=== PATIENT | female | born 2000 | race Caucasian/White ===

== ENCOUNTER 2025-06-03 14:34 | Emergency (ER) | payer OTHER, SELFPAY ==
[2025-06-03 14:39] VITALS: BP 147/80; PULSE 125; RESP 19; TEMP 37.2; O2SAT 99; BMI 26.6
[2025-06-03] MEDS: KETOROLAC 30 MG/ML VIAL 15 MG IV (14:52)
[2025-06-03] MEDS: ONDANSETRON 4 MG/2 ML INJ IV (14:52)
[2025-06-03 15:09] LABS: Appearance Urine UA Cloudy; Color Urine UA Orange
[2025-06-03 15:12] LABS: Add Manual Diff / Slide Review NO; Hematocrit 39.7 % (36-46); Hemoglobin 13.2 g/dL (12.0-16.0); Lymphocytes Absolute Auto 1000 /uL (1100-4500); Mean Corpuscular HGB Conc 33.2 % (30-36); Mean Corpuscular Hemoglobin 28.1 PG (26-34); Mean Corpuscular Volume 84.5 fL (80-100); Platelet Count 255 X10^3/uL (150-400)
[2025-06-03 15:20] LABS: Alanine Aminotransferase 14 IU/L (<35); Albumin 5.2 g/dL (3.5-5.0); Albumin Globulin Ratio 1.5 (1.0-2.8); Alkaline Phosphatase 64 U/L (38-126); Blood Urea Nitrogen 11 mg/dL (7-17); Calcium 9.8 mg/dL (8.4-10.2); Carbon Dioxide 21 mmol/L (22-32); Chloride 105 mmol/L (98-107); Estimated Glomerular Filt Rate > 60 mL/min (>60); Globulin 3.5 g/dL (1.7-4.1); Glucose 91 mg/dL (70-99); HEMOLYSIS < 15 (0-50); Lactate (Lactic Acid) 0.9 mmol/L (0.7-2.1); Potassium 3.8 mmol/L (3.4-5.1); Sodium 138 mmol/L (137-145); Total Protein 8.7 g/dL (6.3-8.2)
[2025-06-03 15:24] LABS: Culture Indicated Urine Specimen Cultured
--- NOTE | 2025-06-03 15:26 | ED_ITS ---
HPI - Female Genitourinary
--- NOTE | 2025-06-03 15:26 | ED.FEMALEGU ---
HPI - Female Genitourinary <Jesusita Cano PA-C - Last Filed: 06/03/25 18:54> General Chief complaint: Urogenital-Female Stated complaint: peeing blood, per pt poss bad UTI Time Seen by Provider: 06/03/25 14:45 Source: patient Mode of arrival: Ambulatory History of Present Illness HPI Narrative: Ms. Kolb is a very pleasant 25-year-old female with a past medical history of interstitial cystitis, she does follow up with a private urologist on , she presents to the emergency department today for hematuria and dysuria x5 days with concern of UTI. Patient reports that she has been dealing with a lot of urinary issues in the past however on Friday she started having burning and slight blood in her urine. Today the burning has become constant at the urethra and she is also now having some left-sided low back pain. She is passing large blood clots in her urine as well. She did start taking AZO. 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 She denies chest pain, shortness of breath, abdominal pain, vomiting, diarrhea, constipation but she is experiencing some nausea because of the pain. She is currently in a monogamous relationship with her boyfriend of 5 years, she is not concerned for STDs but is agreeable to be tested for such. Reports that she does have white coat hypertension. Related Data Previous Rx's ?Medication ?Instructions ?Recorded cefpodoxime 200 mg tablet 200 mg PO BID 10 days #20 tabs 06/03/25 fluconazole 150 mg tablet 150 mg PO DAILY 1 dose #1 tab 06/03/25 ketorolac 10 mg tablet 10 mg PO Q8H #14 tabs 06/03/25 ondansetron 4 mg disintegrating 4 mg PO Q8H PRN nausea and 06/03/25 tablet vomiting #14 tabs Allergies Allergy/AdvReac Type Severity Reaction Status Date / Time No Known Drug Allergies Allergy Verified 06/03/25 14:51 Review of Systems <ARIES Elder Last Filed: 06/03/25 18:54> Review of Systems ROS Unobtainable: All systems reviewed & are unremarkable except as noted in HPI and below Exam <Jesusita Cano PA-C - Last Filed: 06/03/25 18:54> Narrative Exam Narrative: GENERAL: 25 year old patient appears stated age. Well-developed patient, in no acute distress. HEAD: Atraumatic. Normocephalic. EYES: No scleral icterus. No injection or drainage. NECK: Trachea midline. Cervical ROM intact. CARDIOVASCULAR: Regular rate and rhythm. RESPIRATORY: ?Nonlabored respirations. ?Speaking in clear, full sentences. ?Clear to auscultation. Breath sounds equal bilaterally. No wheezes, rales, or rhonchi. ? GASTROINTESTINAL: Abdomen soft, non-tender, nondistended. BS present. EXTREMITIES: No LE edema. BACK: NO CVA tenderness BL. Subjective pain left lower lumbar region. NEURO: AOx3. ?Clear speech. ?Moves all 4 extremities appropriately. SKIN: No rash or erythema of visible areas Initial Vital Signs Initial Vital Signs: Vital Signs Temperature 99 F 06/03/25 14:39 Pulse Rate 125 H 06/03/25 14:39 Respiratory Rate 19 06/03/25 14:39 Blood Pressure 147/80 H 06/03/25 14:39 Pulse Oximetry 99 06/03/25 14:39 Oxygen Delivery Method Room Air 06/03/25 14:39 <Sandy Hills DO - Last Filed: 06/06/25 13:22> Initial Vital Signs Initial Vital Signs: Vital Signs Temperature 99 F 06/03/25 14:39 Pulse Rate 125 H 06/03/25 14:39 Respiratory Rate 19 06/03/25 14:39 Blood Pressure 147/80 H 06/03/25 14:39 Pulse Oximetry 99 06/03/25 14:39 Oxygen Delivery Method Room Air 06/03/25 14:39 Course <Jesusita Cano PA-C - Last Filed: 06/03/25 18:54> Orders Ordered: Discontinued Medications Ceftriaxone Sodium 1,000 mg/ (Sodium Chloride) 100 mls @ 200 mls/hr IV NOW ONE Stop: 06/03/25 14:46 Last Admin: 06/03/25 15:33 Dose: Not Given Documented By: PRO Sodium Chloride (Normal Saline 0.9%) 1,000 mls @ 1,000 mls/hr IV BOLUS ONE Stop: 06/03/25 15:46 Last Infusion: 06/03/25 16:49 Dose: Infused Documented By: Admin: 06/03/25 15:27 Dose: 1,000 mls/hr Documented By: PRO Ceftriaxone Sodium 1,000 mg/ (Sodium Chloride) 100 mls @ 200 mls/hr IV NOW ONE Stop: 06/03/25 15:59 Last Infusion: 06/03/25 16:02 Dose: Infused Documented By: Admin: 06/03/25 15:26 Dose: 200 mls/hr Documented By: PRO Ketorolac Tromethamine (Ketorolac 30 Mg/Ml Vial) 15 mg IV NOW ONE Stop: 06/03/25 14:48 Last Admin: 06/03/25 14:52 Dose: 15 mg Documented By: DAVID Ondansetron HCl (Ondansetron 4 Mg/2 Ml Inj) 4 mg IV NOW ONE Stop: 06/03/25 14:48 Last Admin: 06/03/25 14:52 Dose: 4 mg Documented By: DAVID Vital Signs Vital signs: Vital Signs - 8 hr 06/03/25 14:39 06/03/25 15:37 06/03/25 17:06 Temperature 99 F Pulse Rate 125 H 86 84 Respiratory Rate 19 18 Blood Pressure 147/80 H 119/64 Pulse Oximetry 99 100 99 Oxygen Delivery Method Room Air Room Air Room Air Oxygen Flow Rate 6 <Sandy Hills DO - Last Filed: 06/06/25 13:22> Orders Ordered: Discontinued Medications Ceftriaxone Sodium 1,000 mg/ (Sodium Chloride) 100 mls @ 200 mls/hr IV NOW ONE Stop: 06/03/25 14:46 Last Admin: 06/03/25 15:33 Dose: Not Given Documented By: PRO Sodium Chloride (Normal Saline 0.9%) 1,000 mls @ 1,000 mls/hr IV BOLUS ONE Stop: 06/03/25 15:46 Last Infusion: 06/03/25 16:49 Dose: Infused Documented By: Admin: 06/03/25 15:27 Dose: 1,000 mls/hr Documented By: PRO Ceftriaxone Sodium 1,000 mg/ (Sodium Chloride) 100 mls @ 200 mls/hr IV NOW ONE Stop: 06/03/25 15:59 Last Infusion: 06/03/25 16:02 Dose: Infused Documented By: Admin: 06/03/25 15:26 Dose: 200 mls/hr Documented By: PRO Ketorolac Tromethamine (Ketorolac 30 Mg/Ml Vial) 15 mg IV NOW ONE Stop: 06/03/25 14:48 Last Admin: 06/03/25 14:52 Dose: 15 mg Documented By: RB Ondansetron HCl (Ondansetron 4 Mg/2 Ml Inj) 4 mg IV NOW ONE Stop: 06/03/25 14:48 Last Admin: 06/03/25 14:52 Dose: 4 mg Documented By: RB Vital Signs Vital signs: Vital Signs - 8 hr 06/03/25 14:39 06/03/25 15:37 06/03/25 17:06 Temperature 99 F Pulse Rate 125 H 86 84 Respiratory Rate 19 18 Blood Pressure 147/80 H 119/64 Pulse Oximetry 99 100 99 Oxygen Delivery Method Room Air Room Air Room Air Oxygen Flow Rate 6 MDM - Female Genitourinary <Jesusita Cano PA-C - Last Filed: 06/03/25 18:54> Medical Records Medical records narrative: None available. Lab Data 06/03/25 14:55 06/03/25 14:55 Labs: Lab Results 06/03/25 06/03/25 Range/Units 14:55 15:00 WBC 11.0 (4.5-11.0) X10^3/uL RBC 4.69 (4.0-5.2) X10^6/uL Hgb 13.2 (12.0-16.0) g/dL Hct 39.7 (36-46) % MCV 84.5 (80-100) fL MCH 28.1 (26-34) PG MCHC 33.2 (30-36) % RDW 14.9 H (11.6-14.8) % Plt Count 255 (150-400) X10^3/uL Neut % (Auto) 87.4 H (50-75) % Lymph % (Auto) 9.3 L (25-40) % [place] % (Auto) 3.0 (3-14) % Eos % (Auto) 0.1 L (2-4) % Baso % (Auto) 0.2 (0-2) % Neut # (Auto) 9700 H (6297-9968) /uL Lymph # (Auto) 1000 L (1549-0153) /uL [place] # (Auto) 300 (0-900) /uL Eos # (Auto) 0 (0-450) /uL Baso # (Auto) 0 (0-100) /uL Sodium 138 (137-145) mmol/L Potassium 3.8 (3.4-5.1) mmol/L Chloride 105 (98-107) mmol/L Carbon Dioxide 21 L (22-32) mmol/L BUN 11 (7-17) mg/dL Creatinine 0.74 (0.52-1.04) mg/dL Estimated GFR > 60 (>60) mL/min BUN/Creatinine Ratio 14.9 (6-22) Glucose 91 (70-99) mg/dL Lactate 0.9 (0.7-2.1) mmol/L Calcium 9.8 (8.4-10.2) mg/dL Total Bilirubin 0.9 (0.2-1.3) mg/dL AST 23 (14-36) IU/L ALT 14 (<35) IU/L Alkaline Phosphatase 64 (38-126) U/L Total Protein 8.7 H (6.3-8.2) g/dL Albumin 5.2 H (3.5-5.0) g/dL Globulin 3.5 (1.7-4.1) g/dL Albumin/Globulin Ratio 1.5 (1.0-2.8) Procalcitonin < 0.030 (<0.5) ng/mL Urine Color Lamar Urine Appearance Cloudy Urine pH TNP Ur Specific [place] TNP Urine Protein TNP Urine Glucose (UA) TNP Urine Ketones TNP Urine Occult Blood TNP Urine Nitrate TNP Urine Bilirubin TNP Urine Urobilinogen TNP Ur Leukocyte Esterase TNP Urine RBC >100/hpf H (0-5/HPF) Urine WBC 10-30/hpf H (0-5/HPF) Ur Squamous Epith Cells 1-5 /hpf (0-5/HPF) Urine Bacteria Few (2-10) H (None) Ur Culture Indicated? Specimen cultured Vol Urine Centrifuged 10ml (spun) Urine Test Negative (Negative) MDM Narrative Medical decision making narrative: 25-year-old female with a past medical history of interstitial cystitis, she does follow up with a private urologist on [facility], she presents to the emergency department today for hematuria and dysuria x5 days with concern of UTI. Differential diagnosis includes but is not limited to cystitis, interstitial cystitis, urethritis, pyelonephritis, nephrolithiasis, etc. On exam patient is in no acute distress, nontoxic appearing, vital signs appropriate except for elevated heart rate at 125. She is having symptoms concerning for urinary tract infection. She is afebrile. However given tachycardia in the setting of infectious concern, We will obtain CBC, CMP, lactic, procal, blood cultures, treat with ceftriaxone IVF zofran, check urinalysis, vaginal swabs. She is not having any intermittent or colicky pain, no flank pain, no abdominal pain to suggest kidney stone. At this time her abdomen is soft and nontender with no CVA tenderness, we will hold off on imaging at this time. Workup reveals WBC count at upper limits of normal 11.0, normal hemoglobin 13.2 hematocrit 39.7. Platelets 255. Sodium 138, potassium 3.8, BUN 11 creatinine 0.74. Normal LFTs. Negative procalcitonin, negative lactate. Urinalysis is impacted by blood and AZO, however it does reveal white blood cell and bacteria concerning for infection given patient's dysuria. Wet prep negative for trichomoniasis, BV, there are some yeast. Discussed with the patient workup today. She feels much better after ED treatment and heart rate has completely normalized. At this time we will treat as acute urinary tract infection with hematuria, patient is starting to have some lower back discomfort, we will treat with cefpodoxime for appropriate treatment of potential pyelonephritis as well. Patient was also prescribed Toradol for pain, Zofran for nausea, and Diflucan in the event that she develops with a vaginal candidiasis after the completion of antibiotics. Advised patient to follow up with her urologist promptly for further management, return to the ER for any new or worsening symptoms or other concerns. Patient and the patient's mother verbalized understanding of all information agreeable with the plan. She is ambulatory and stable for discharge home. <Sandy Hills, DO - Last Filed: 06/06/25 13:22> Lab Data Labs: Lab Results 06/03/25 06/03/25 Range/Units 14:55 15:00 WBC 11.0 (4.5-11.0) X10^3/uL RBC 4.69 (4.0-5.2) X10^6/uL Hgb 13.2 (12.0-16.0) g/dL Hct 39.7 (36-46) % MCV 84.5 (80-100) fL MCH 28.1 (26-34) PG MCHC 33.2 (30-36) % RDW 14.9 H (11.6-14.8) % Plt Count 255 (150-400) X10^3/uL Neut % (Auto) 87.4 H (50-75) % Lymph % (Auto) 9.3 L (25-40) % [place] % (Auto) 3.0 (3-14) % Eos % (Auto) 0.1 L (2-4) % Baso % (Auto) 0.2 (0-2) % Neut # (Auto) 9700 H (2224-4702) /uL Lymph # (Auto) 1000 L (1344-5624) /uL [place] # (Auto) 300 (0-900) /uL Eos # (Auto) 0 (0-450) /uL Baso # (Auto) 0 (0-100) /uL Sodium 138 (137-145) mmol/L Potassium 3.8 (3.4-5.1) mmol/L Chloride 105 (98-107) mmol/L Carbon Dioxide 21 L (22-32) mmol/L BUN 11 (7-17) mg/dL Creatinine 0.74 (0.52-1.04) mg/dL Estimated GFR > 60 (>60) mL/min BUN/Creatinine Ratio 14.9 (6-22) Glucose 91 (70-99) mg/dL Lactate 0.9 (0.7-2.1) mmol/L Calcium 9.8 (8.4-10.2) mg/dL Total Bilirubin 0.9 (0.2-1.3) mg/dL AST 23 (14-36) IU/L ALT 14 (<35) IU/L Alkaline Phosphatase 64 (38-126) U/L Total Protein 8.7 H (6.3-8.2) g/dL Albumin 5.2 H (3.5-5.0) g/dL Globulin 3.5 (1.7-4.1) g/dL Albumin/Globulin Ratio 1.5 (1.0-2.8) Procalcitonin < 0.030 (<0.5) ng/mL Urine Color [place] Urine Appearance Cloudy Urine pH TNP Ur Specific [place] TNP Urine Protein TNP Urine Glucose (UA) TNP Urine Ketones TNP Urine Occult Blood TNP Urine Nitrate TNP Urine Bilirubin TNP Urine Urobilinogen TNP Ur Leukocyte Esterase TNP Urine RBC >100/hpf H (0-5/HPF) Urine WBC 10-30/hpf H (0-5/HPF) Ur Squamous Epith Cells 1-5 /hpf (0-5/HPF) Urine Bacteria Few (2-10) H (None) Ur Culture Indicated? Specimen cultured Vol Urine Centrifuged 10ml (spun) Urine Test Negative (Negative) Discharge Plan Departure Patient Disposition: Home Clinical Impression: Urinary tract infection Qualifiers: Urinary tract infection type: site unspecified Hematuria presence: with hematuria Qualified Code(s): N39.0 - Urinary tract infection, site not specified Instructions: DI for Urinary Tract Infection (UTI), DI for Hematuria Activity Restrictions/Additional Instructions: Dear Ms. Kolb, Thank you for coming to the emergency department. Today you were evaluated for painful urination and blood in your urine. Your workup today revealed a urinary tract infection. We did obtain urine and blood cultures and you will be called in a few days if these come back positive. I have prescribed you an oral antibiotic to start tomorrow in addition to pain medicine, nausea medicine in the treatment for a yeast infection if this develops after the completion of antibiotics. Please follow up with your urologist as soon as possible. Please return to the emergency department immediately if you develop severe pain, increased bleeding, fevers, difficulty urinating or any other concerns. Please follow up with your primary care doctor within the next 2-3 days for ER follow-up. (If you do not have a PCP you can call [phone]. ?to schedule an appointment with an [facility] Primary Care Provider) IF YOU DEVELOP ANY NEW OR WORSENING SYMPTOMS, RETURN TO THE ER! Please read the attached instructions, they highlight more specific treatments and interventions for you at home. Thank you for letting me participate in your care, Jesusita Cano PA-C Prescriptions: New cefpodoxime 200 mg tablet 200 mg PO BID 10 Days Qty: 20 0RF Rx Instructions: must administer with a meal/food fluconazole 150 mg tablet 150 mg PO DAILY Qty: 1 0RF Rx Instructions: administer after completion of antibiotics if symptoms of yeast infection present ketorolac 10 mg tablet 10 mg PO Q8H Qty: 14 0RF Rx Instructions: maximum total duration of 5 days from all oral, intranasal, or parenteral formulations ondansetron 4 mg tablet,disintegrating 4 mg PO Q8H PRN (Reason: nausea and vomiting) Qty: 14 0RF Stand Alone Forms: Patient Portal/API ED Sign-out <Sandy Hills DO - Last Filed: 06/06/25 13:22> Cosign ED Attending Cosignature Attestation: I was available for consultation.
[2025-06-03] MEDS: SODIUM CHLORIDE 0.9% 1,000 ML 1000 ML IV (15:27)
[2025-06-03 15:37] VITALS: PULSE 86; RESP 18; O2SAT 100
[2025-06-03 15:37] LABS: Procalcitonin < 0.030 ng/mL (<0.5)
[2025-06-03 17:06] VITALS: BP 119/64; PULSE 84; O2SAT 99
== END 2025-06-03 17:14 | disposition home or self-care (01) ==
PROVIDERS: Emergency Provider Physician Assistant
DX: N39.0 Urinary tract infection, site not specified (principal); R31.9 Hematuria, unspecified
CPT/HCPCS: 36415; 80053; 81001; 81025; 83605; 84145; 85025; 87040; 87086; 87210; 87491; 87563; 87591; 96365; 96375; 99284; J0696; J1885; J2405; J7030; J7050